=== PATIENT | male | born 1970 | race African-American/Black ===

== ENCOUNTER 2019-05-30 19:56 | Emergency (ER) | payer OTHER ==
[~2019-05-30] VITALS: Ht 182.9 cm; Wt 104.3 kg
--- NOTE | 2019-05-30 20:07 | NUR ---
BIBSELF C/O ERECTION X5HR S/P UNKNOWN MEDICATION BY PMD X1 DAY.
[2019-05-30] MEDS ORDERED: ONDANSETRON HCL/PF 4 MG/2 ML VIAL ONE (20:29)
[2019-05-30] MEDS ORDERED: HYDROMORPHONE 1 MG/1 ML DISP.SYRIN ONE (20:29)
[2019-05-30] MEDS ORDERED: ONDANSETRON HCL/PF 4 MG/2 ML VIAL IVP ONE (20:30)
[2019-05-30] MEDS ORDERED: LIDOCAINE HCL/PF 1% 30 ML VIAL TP ONE (20:30)
[2019-05-30] MEDS ORDERED: HYDROMORPHONE INJ 2 MG/ML DISP.SYRIN IV ONE (20:30)
[2019-05-30 20:39] LABS: BASOPHILS % (AUTO) 0.6 % (0.0-2.0); EOSINOPHILS % (AUTO) 2.3 % (0.0-6.0); HEMATOCRIT 35 % (39-51); HEMOGLOBIN 11.7 g/dL (13.5-17.5); LYMPHOCYTES # (AUTO) 1.5 /CMM (0.8-4.8); LYMPHOCYTES % (AUTO) 22.5 % (20.0-44.0); MEAN CORPUSCULAR HGB CONC 34 g/dl (31.0-36.0); MEAN CORPUSCULAR VOLUME 86 fL (80-96); MONOCYTES # (AUTO) 0.8 /CMM (0.1-1.30); MONOCYTES % (AUTO) 11.7 % (2.0-12.0); NEUTROPHILS # (AUTO) 4.1 /CMM (1.8-8.9); NEUTROPHILS % (AUTO) 62.9 % (43.0-81.0); PLATELET COUNT (AUTO) 245 /CMM (150-450); RED BLOOD CELL COUNT(AUTO) 4.01 MIL/uL (4.5-6.0); WHITE BLOOD COUNT (AUTO) 6.5 K/uL (4.3-11.0)
[2019-05-30] MEDS ORDERED: LIDOCAINE HCL/MPF 1% 30 ML VIAL IJ ONE (20:41)
--- NOTE | 2019-05-30 20:47 | NUR ---
AT BEDSIDE FOR DRAINAGE OF PENIS
[2019-05-30] MEDS ORDERED: PHENYLEPHRINE 10 MG/ML VIAL ONE (21:30)
--- NOTE | 2019-05-30 21:39 | NUR ---
AT BEDSIDE TO DRAIN MORE BLOOD FROM PATIENT'S PENIS
--- NOTE | 2019-05-30 22:21 | NUR ---
PATIENT STATES THAT HE FEELS "A LOT BETTER THAN BEFORE". PATIENT'S PENIS IS FLACID.
[2019-05-30] MEDS ORDERED: PHENYLEPHRINE 10 MG/ML VIAL IJ ONE (22:30)
[2019-05-30 23:01] VITALS: BP 134/81
--- NOTE | 2019-05-30 23:02 | NUR ---
IV removed. Catheter intact and site benign. Pressure and 4x4 applied to site. No bleeding noted. Patient discharged to home in stable condition. Written and verbal after care instructions given. Patient verbalizes understanding of instruction.
== END 2019-05-30 23:02 | disposition home or self-care (01) ==
LOC: ER 19:59
DX: N48.33 Priapism, drug-induced (principal); Z85.46 Personal history of malignant neoplasm of prostate; Z88.6 Allergy status to analgesic agent
CPT/HCPCS: 36415; 85025; 96374; 96375; 99283; J1170; J2370; J2405; J3490 ×2